=== PATIENT | female | born 1950 | race Hispanic/Latino ===

== ENCOUNTER → 2021-10-02 | Outpatient (CLI) | payer OTHER ==
[~2021-10-02] MED LIST: IOHEXOL-350 75 ML VIAL IV ONE
== END | disposition home or self-care (01) ==
LOC: RAH 09:54
PROVIDERS: ATTEND Internal Medicine Gastroenterology
DX: K74.60 Unspecified cirrhosis of liver (principal); K80.20 Calculus of gallbladder without cholecystitis without obstruction; E27.8 Other specified disorders of adrenal gland; I70.8 Atherosclerosis of other arteries; I86.8 Varicose veins of other specified sites; M47.815 Spondylosis without myelopathy or radiculopathy, thoracolumbar region; R77.2 Abnormality of alphafetoprotein
CPT/HCPCS: 74170; Q9967

== ENCOUNTER → 2022-02-22 | Outpatient (CLI) | payer OTHER ==
[2022-02-22 11:20] LABS: CREATININE 0.7 mg/dL (0.5-1.5)
== END | disposition home or self-care (01) ==
LOC: LAB 10:00
PROVIDERS: ATTEND Internal Medicine Gastroenterology
DX: K74.60 Unspecified cirrhosis of liver (principal); R77.2 Abnormality of alphafetoprotein
CPT/HCPCS: 36415; 82565; 84520

== ENCOUNTER → 2022-03-18 | Outpatient (CLI) | payer OTHER ==
[~2022-03-18] MED LIST changes: +GADOTERATE MEGLUMINE 10 MMOL/20 ML VIAL IV ONE; -IOHEXOL-350 75 ML VIAL IV ONE
== END | disposition home or self-care (01) ==
LOC: RAH 07:56
PROVIDERS: ATTEND Internal Medicine Gastroenterology
DX: K80.20 Calculus of gallbladder without cholecystitis without obstruction (principal); K74.60 Unspecified cirrhosis of liver; I86.8 Varicose veins of other specified sites; E27.8 Other specified disorders of adrenal gland; R77.2 Abnormality of alphafetoprotein
CPT/HCPCS: 74183; A9575

== ENCOUNTER → 2022-10-14 | Outpatient (CLI) | payer OTHER | END | disposition home or self-care (01) | LOC: RAH 08:03 | PROVIDERS: ATTEND Internal Medicine Gastroenterology | DX: K74.60 Unspecified cirrhosis of liver (principal); K80.20 Calculus of gallbladder without cholecystitis without obstruction; R16.1 Splenomegaly, not elsewhere classified | CPT/HCPCS: 76700 ==